=== PATIENT | male | born 1945 | race Caucasian/White ===

== ENCOUNTER 2022-11-12 06:00 | Day surgery (SDC) | payer OTHER ==
[~2022-11-12] VITALS: Ht 182.9 cm; Wt 62.6 kg
[~2022-11-12 06:00] MED LIST: AMLODIPINE-OLM1 EAC3 PO; COZAAR100 MG PO; FEOSOL325 MG PO; ROCALTROL0.25 MCG PO; SODIUM BICARBO650 MG PO
[2022-11-12] MEDS ORDERED: POLY119PG PO (12:27)
[2022-11-12] MEDS ORDERED: NEURONTIN300 MG PO (12:27)
[2022-11-12] MEDS ORDERED: ULTRACET PO (12:27)
== END 2022-11-12 17:40 | disposition home or self-care (01) ==
LOC: CIR.AMB 06:00
PROVIDERS: ATTEND Surgery
DX: K40.90 Unilateral inguinal hernia, without obstruction or gangrene, not specified as recurrent (principal); I10 Essential (primary) hypertension; E05.90 Thyrotoxicosis, unspecified without thyrotoxic crisis or storm; Z91.041 Radiographic dye allergy status; Z20.822 Contact with and (suspected) exposure to COVID-19; Z86.16 Personal history of COVID-19